=== PATIENT | female | born 1985 | race African-American/Black ===

== ENCOUNTER 2024-09-09 21:45 | Emergency (ER) | payer MEDICARE, MEDICAID, SELFPAY ==
[2024-09-09 21:53] VITALS: BP 157/102; PULSE 74; RESP 20; TEMP 36.7; O2SAT 97; BMI 53.2
--- NOTE | 2024-09-09 22:12 | HMH.EDGENADL ---
Discharge Plan Disposition Patient Disposition: Home, Self-Care Condition: Good Prescriptions Prescriptions: New oxymetazoline [Afrin (oxymetazoline)] 0.05 % spray,non-aerosol 2 spray intranasal BID PRN (Reason: nasal congestion) 3 Days Qty: 15 0RF fluticasone propionate [Flonase Allergy Relief] 50 mcg/actuation spray,suspension 1 spray intranasal BID Qty: 16 0RF Rx Instructions: administer into each nostril cetirizine [Zyrtec] 10 mg tablet 10 mg PO DAILY Qty: 30 0RF amoxicillin-pot clavulanate 875-125 mg tablet 1 tab PO BID Qty: 20 0RF fddqjkkuvkkqhre-kyzkcpqsh-YW [Bromfed DM] 2-30-10 mg/5 mL syrup 5 ml PO Q6H PRN (Reason: cold symptoms) Qty: 118 0RF Referrals Follow up/Referrals: Zora Negrete APRN [Nurse Practitioner] - See instructions Provider,ReferralMD [Primary Care Provider] - See instructions Activity Restrictions/Add. Instructions Additional Instructions/Restrictions: You were evaluated in the emergency department today. 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 Follow-up closely with your primary care provider. I also recommend close follow-up with ENT. Return to the emergency department for new or worsening symptoms. Clinical Impressions Clinical Impression: Sinusitis, Epistaxis Stand Alone Forms Stand Alone Forms: Work/School Release Instructions Patient Instructions: DI for Sinusitis, DI for Nosebleed Print Language Print Language: Sinhala Discharge ED Provider: Annalise Garcia General Adult HPI General Chief complaint: Upper Respiratory Infection Stated complaint: flako,nosebleeds Time Seen by Provider: 09/09/24 21:53 Mode of Arrival: Ambulatory Source of Information: Patient Limitations: No Limitations Description of Symptoms (Recalled from ER Triage Doc. by RN): Pt reports to ED with cc of cough, congestion, bloody nose, and migraine/headache. Pt states symptoms started approx 5 days ago. Pt describe the bloody nose as lasting 30 to 40 mins and having clots. Pt states taking Tylenol at approx 1900 with no relief. History of Present Illness HPI narrative: This patient is a 38-year-old female who has history of obesity presenting to the emergency department for evaluation with concern for nasal congestion and nosebleeds over the last 5 days. She also notes that she has had cough and sore throat. She notes that she is having nosebleeds several times a day and typically lasts about 30 minutes. Last bleed was about 2 hours prior to arrival. She knows she was post to have sinus surgery in the past but did not because she was scared to. She denies any severe headache, visual disturbance, or other concerns. No chest pain or shortness of breath. Related Data Previous Rx's ?Medication ?Instructions ?Recorded amoxicillin 875 mg-potassium 1 tab PO BID #20 tabs 09/09/24 clavulanate 125 mg tablet ptibleqnffiaxxz-kpnzgwuctwlsrbn-LU 5 ml PO Q6H PRN cold symptoms #118 09/09/24 2 mg-30 mg-10 mg/5 mL oral syrup mL (Bromfed DM) cetirizine 10 mg tablet (Zyrtec) 10 mg PO DAILY #30 tabs 09/09/24 fluticasone propionate 50 1 spray intranasal BID #16 grams 09/09/24 mcg/actuation nasal spray,suspension (Flonase Allergy Relief) oxymetazoline 0.05 % nasal spray 2 spray intranasal BID PRN nasal 09/09/24 (Afrin (oxymetazoline)) congestion 3 days #15 mL Allergies Allergy/AdvReac Type Severity Reaction Status Date / Time pantoprazole (From Protonix) Allergy Hives Verified 09/09/24 22:11 [facility] Disclaimer: The information contained in this section may have been updated after the patient was seen, as this information can be updated by other users. Social History Smoking Status: Never smoker alcohol intake: never current occupational status: employed ROS Obtained: Yes All systems reviewed & no additional complaints except as documented Physical Exam General General appearance: alert, in no apparent distress and obese Head Head exam: atraumatic and normocephalic Eye Eye exam: Present normal appearance, PERRL and EOMI ENT ENT exam: Present normal oropharynx, mucous membranes moist, normal external ear exam and other (Nasal congestion with no active epistaxis. No septal hematoma or perforation noted on exam.) Neck Neck exam: Present normal inspection, full ROM and trachea midline; Absent tenderness Chest Chest inspection: Present normal inspection and symmetric chest wall rise; Absent tenderness Respiratory Respiratory exam: Present normal lung sounds bilaterally; Absent respiratory distress, wheezes, stridor or accessory muscle use Cardiovascular Cardiovascular exam: Present regular rate and normal rhythm Abdominal Exam Abdominal exam: Present soft; Absent distention, tenderness or guarding Extremities Exam Extremities exam: Present normal inspection, full ROM and normal capillary refill; Absent tenderness or edema Back Exam Back exam: Present normal inspection and full ROM; Absent tenderness Neurological Exam Neurological exam: Present alert, oriented X3, CN II-XII intact and normal gait; Absent motor sensory deficit Psychiatric Psychiatric exam: Present normal affect and normal mood Skin Skin exam: Present warm and dry Medical Decision Making Medical Records Medical records reviewed: Yes I reviewed the patient's medical records. Screening: Per USPSTF and CDC recommendations, given the prevalence of disease in our region, it is our hospital?s policy to screen for HIV and viral Hepatitis for all patients aged 18 and over and those with ongoing risk factors. Zheng Inquiry Pt receiving controlled substance: No Vital Signs: 09/09/24 21:53 09/09/24 22:22 Temperature 98.1 F 98.1 F Temperature Source Oral Pulse Rate 80 Pulse Rate [Left Radial] 74 Respiratory Rate 20 20 Blood Pressure 154/83 H Blood Pressure [Right Arm] 157/102 H Blood Pressure Mean [Right Arm] 120 Blood Pressure Source Automatic Cuff Blood Pressure Source [Right Arm] Automatic Cuff Blood Pressure Position Sitting Blood Pressure Position [Right Arm] Sitting 02 Sat by Pulse Oximetry 97 Oxygen Delivery Method Room Air Room Air Lab Data Lab results reviewed: Yes I reviewed the patient's lab results. Medical Decision Narrative: In summary, this patient is a 38-year-old female presenting to the Emergency Department for evaluation of nosebleeds, nasal congestion, sore throat, cough. Differential diagnoses considered include but are not limited to viral syndrome, pneumonia, sinusitis, pharyngitis. Ruling out the most morbid conditions drove assessment. On exam, the patient is very well-appearing. She currently has no epistaxis. She does have significant nasal congestion but no septal hematoma, perforation, or other concerns noted on exam. She is nontoxic-appearing with reassuring cardiopulmonary exam. Oropharyngeal exam is also reassuring. Ultimately, I feel she likely has sinusitis causing her symptoms and notes she does have chronic sinus pain. Will plan to treat with Augmentin as well as Flonase and Zyrtec. She was also given Bromfed at her request and I did prescribe Afrin to use as needed for nosebleeds, but I did advise caution with prolonged use. Ultimately, feel she would benefit from discharge with close follow-up with ENT and primary care. Patient was given instructions for this as well as strict return precautions. She was discharged after all questions were answered. Critical Care Critical Care Time Critical Care Time: No
[2024-09-09 22:22] VITALS: BP 154/83; PULSE 80; RESP 20; TEMP 36.7; O2SAT 97
== END 2024-09-09 22:25 | disposition home or self-care (01) ==
PROVIDERS: Emergency Provider Emergency Medicine
DX: J32.9 Chronic sinusitis, unspecified (principal); R04.0 Epistaxis; R05.9 Cough, unspecified; R09.81 Nasal congestion; R51.9 Headache, unspecified; J02.9 Acute pharyngitis, unspecified
CPT/HCPCS: 99283

== ENCOUNTER 2024-11-16 21:17 | Emergency (ER) | payer MEDICARE, MEDICAID, SELFPAY ==
[2024-11-16 21:19] VITALS: BP 172/97; PULSE 83; RESP 16; TEMP 36.8; O2SAT 98; BMI 53.2
--- NOTE | 2024-11-16 21:26 | XR_ITS ---
PROCEDURE INFORMATION: Exam: XR Right Hand Exam date and time: 11/16/2024 11:00 PM Age: 38 years old Clinical indication: Injury or trauma; Other: Smashed TECHNIQUE: Imaging protocol: Radiologic exam of the right hand. Views: 3 or more views. COMPARISON: No relevant prior studies available. FINDINGS: Bones/joints: Multiple views were obtained. The osseous structures appear intact with no evidence of acute fracture, dislocation, or malalignment. Joint spaces are preserved. No abnormal bone density or destructive lesions are noted. Soft tissues: Soft tissue swelling is observed, and further clinical correlation is advised. IMPRESSION: At the time of imaging, the skeletal radiograph demonstrates no acute osseous abnormalities but does show soft tissue swelling.
[2024-11-16] MEDS: IBUPROFEN 800 MG TABLET PO (21:33)
--- NOTE | 2024-11-16 21:33 | PC.NURSE ---
Patient provided an ice pack at this time. Medicated as documented.
--- NOTE | 2024-11-16 22:17 | ED_ITS ---
Discharge Plan Disposition Patient Disposition: Home, Self-Care Condition: Good Prescriptions Prescriptions: No Action oxymetazoline [Afrin (oxymetazoline)] 0.05 % spray,non-aerosol 2 spray intranasal BID PRN (Reason: nasal congestion) 3 Days Qty: 15 0RF fluticasone propionate [Flonase Allergy Relief] 50 mcg/actuation spray,suspension 1 spray intranasal BID Qty: 16 0RF Rx Instructions: administer into each nostril cetirizine [Zyrtec] 10 mg tablet 10 mg PO DAILY Qty: 30 0RF amoxicillin-pot clavulanate 875-125 mg tablet 1 tab PO BID Qty: 20 0RF phbutokyvqmxxbv-szozsvvcb-DX [Bromfed DM] 2-30-10 mg/5 mL syrup 5 ml PO Q6H PRN (Reason: cold symptoms) Qty: 118 0RF Referrals Follow up/Referrals: Torrie Washburn APRN [Primary Care Provider] - See instructions Activity Restrictions/Add. Instructions Additional Instructions/Restrictions: You were evaluated in the emergency department today. At this time, your x-ray does not demonstrate any acute broken bone. Please take Tylenol and ibuprofen for any pain.. Return to the emergency department for new or worsening symptoms. Clinical Impressions Clinical Impression: Crush injury of hand Stand Alone Forms Stand Alone Forms: Work/School Release Instructions Patient Instructions: DI for Hand Injury, DI for Hand Pain Print Language Print Language: Lao Discharge ED Provider: Annalise Garcia General Adult HPI General Chief complaint: Extremity Injury, Upper Stated complaint: [id number] Middle finger inj Time Seen by Provider: 11/16/24 21:31 Mode of Arrival: Ambulatory Source of Information: Patient Limitations: No Limitations Description of Symptoms (Recalled from ER Triage Doc. by RN): Patient presents ambulatory to triage. States she was assisting a family member move when she smashed her middle finger on her right hand in the door of the [facility]. Patient states the injury was sustained 2 hours ago. States she took Tylenol 500mg with no results. Patients skin tone consistent with ethnicity. Capillary refill <2 minutes. Patient states she cannot move the finger. History of Present Illness HPI narrative: This patient is a 38-year-old female presents to the emergency department for evaluation with concern for right middle finger injury. Patient was helping move with a [employer] when she smashed her finger in the door of the [employer]. This happened 2 hours prior to arrival. She took Tylenol without good improvement. She complains of significant pain to the right middle finger with limited range of motion secondary to pain. No numbness, tingling, or other concerns noted. Related Data Previous Rx's ?Medication ?Instructions ?Recorded amoxicillin 875 mg-potassium 1 tab PO BID #20 tabs 09/09/24 clavulanate 125 mg tablet aubltohrebgrqfb-boyiykgyurquool-DN 5 ml PO Q6H PRN cold symptoms #118 09/09/24 2 mg-30 mg-10 mg/5 mL oral syrup mL (Bromfed DM) cetirizine 10 mg tablet (Zyrtec) 10 mg PO DAILY #30 tabs 09/09/24 fluticasone propionate 50 1 spray intranasal BID #16 grams 09/09/24 mcg/actuation nasal spray,suspension (Flonase Allergy Relief) oxymetazoline 0.05 % nasal spray 2 spray intranasal BID PRN nasal 09/09/24 (Afrin (oxymetazoline)) congestion 3 days #15 mL Allergies Allergy/AdvReac Type Severity Reaction Status Date / Time pantoprazole (From Protonix) Allergy Hives Verified 09/09/24 22:11 [facility] Disclaimer: The information contained in this section may have been updated after the patient was seen, as this information can be updated by other users. Social History Smoking Status: Never smoker alcohol intake: never current occupational status: employed Travel in the last 8 weeks: None ROS Obtained: Yes All systems reviewed & no additional complaints except as documented Physical Exam General General appearance: alert and in no apparent distress Head Head exam: atraumatic and normocephalic Eye Eye exam: Present normal appearance, PERRL and EOMI ENT ENT exam: Present normal exam, normal oropharynx, mucous membranes moist and normal external ear exam Neck Neck exam: Present normal inspection, full ROM and trachea midline; Absent tenderness Chest Chest inspection: Present normal inspection and symmetric chest wall rise; Absent tenderness Respiratory Respiratory exam: Present normal lung sounds bilaterally; Absent respiratory distress, wheezes, stridor or accessory muscle use Cardiovascular Cardiovascular exam: Present regular rate and normal rhythm Abdominal Exam Abdominal exam: Present soft; Absent distention, tenderness or guarding Extremities Exam Extremities exam: Present tenderness, normal capillary refill and other (Tender to palpation of the right middle finger. All compartments soft. Neurovascularly intact distally. Limited range of motion secondary to pain. No open wounds); Absent edema Back Exam Back exam: Present normal inspection and full ROM; Absent tenderness Neurological Exam Neurological exam: Present alert, oriented X3, CN II-XII intact and normal gait; Absent motor sensory deficit Psychiatric Psychiatric exam: Present normal affect and normal mood Skin Skin exam: Present warm and dry Medical Decision Making Medical Records Medical records reviewed: Yes I reviewed the patient's medical records. Screening: Per USPSTF and CDC recommendations, given the prevalence of disease in our region, it is our hospital?s policy to screen for HIV and viral Hepatitis for all patients aged 18 and over and those with ongoing risk factors. Zheng Inquiry Pt receiving controlled substance: No Vital Signs: 11/16/24 21:19 11/16/24 23:31 Temperature 98.3 F 98.2 F Temperature Source Oral Oral Pulse Rate 88 Pulse Rate [Radial] 83 Respiratory Rate 16 20 Blood Pressure 170/90 H Blood Pressure [Left Arm] 172/97 H Blood Pressure Mean [Left Arm] 122 Blood Pressure Source Automatic Cuff Blood Pressure Source [Left Arm] Automatic Cuff Blood Pressure Position Sitting 02 Sat by Pulse Oximetry 98 Oxygen Delivery Method Room Air Room Air Lab Data Lab results reviewed: Yes I reviewed the patient's lab results. Orders (Tests/Meds): ED MEDICATIONS Discontinued Medications Generic Name Dose Route Start Last Admin Trade Name Freq PRN Reason Stop Dose Admin Ibuprofen 800 mg 11/16/24 21:27 11/16/24 21:33 Ibuprofen 800 Mg Tablet PO 11/16/24 21:28 800 mg ONCE ONE Administration ORDERS Category Date Time Status XR hand RT min 3V Stat Exams 11/16/24 21:26 Completed Medical Decision Narrative: In summary, this patient is a 38-year-old female presenting to the Emergency Department for evaluation of a finger injury after smashing a [employer] door. Differential diagnoses considered include but are not limited to fracture, contusion, crush injury, neurovascular injury. Ruling out the most morbid conditions drove assessment. On exam, the patient has right middle finger tenderness and swelling with limited range of motion secondary to pain. She is neurovascularly intact with no open wounds. Workup included x-ray of right hand. She is given oral ibuprofen for symptomatic improvement. I independently interpreted x-ray prior to the radiologist read and noted no fracture. Please see their read for final interpretation. At this time, I feel patient is appropriate for discharge home with instructions for supportive management of contusion to hand. Strict return precautions given Critical Care Critical Care Time Critical Care Time: No
[2024-11-16 23:31] VITALS: BP 170/90; PULSE 88; RESP 20; TEMP 36.8; O2SAT 98
== END 2024-11-16 23:35 | disposition home or self-care (01) ==
PROVIDERS: Emergency Provider Emergency Medicine; PCP Nurse Practitioner Family
DX: S67.21XA Crushing injury of right hand, initial encounter (principal); M79.644 Pain in right finger(s); X58.XXXA Exposure to other specified factors, initial encounter; Y93.89 Activity, other specified; Y92.9 Unspecified place or not applicable
CPT/HCPCS: 73130; 99283

== ENCOUNTER 2025-01-14 02:15 | Emergency (ER) | payer MEDICARE, SELFPAY ==
[2025-01-14 02:21] VITALS: BP 195/113; PULSE 79; RESP 20; TEMP 36.6; O2SAT 98; BMI 47.0
--- NOTE | 2025-01-14 02:33 | XR_ITS ---
PROCEDURE INFORMATION: Exam: XR Chest Exam date and time: 01/14/2025 2:43 AM Age: 39 years old Clinical indication: Shortness of breath; Additional info: SOA TECHNIQUE: Imaging protocol: Radiologic exam of the chest. Views: 2 views. COMPARISON: No relevant prior studies available. FINDINGS: Lungs: Probable atelectatic changes. Pleural spaces: No pneumothorax. Heart/Mediastinum: Unremarkable cardiomediastinal silhouette. Bones/joints: No acute osseous findings. IMPRESSION: No focal consolidation.
--- NOTE | 2025-01-14 02:34 | ED_ITS ---
Discharge Plan Disposition Patient Disposition: Home, Self-Care Condition: Good Prescriptions Prescriptions: New epinephrine 0.3 mg/0.3 mL auto-injector 0.3 mg IM Q10M PRN (Reason: anaphylaxis) Qty: 2 0RF Rx Instructions: do not exceed 3 doses per episode No Action oxymetazoline [Afrin (oxymetazoline)] 0.05 % spray,non-aerosol 2 spray intranasal BID PRN (Reason: nasal congestion) 3 Days Qty: 15 0RF fluticasone propionate [Flonase Allergy Relief] 50 mcg/actuation spray,suspension 1 spray intranasal BID Qty: 16 0RF Rx Instructions: administer into each nostril cetirizine [Zyrtec] 10 mg tablet 10 mg PO DAILY Qty: 30 0RF amoxicillin-pot clavulanate 875-125 mg tablet 1 tab PO BID Qty: 20 0RF lnicdilidfoaccv-aarcrpdnl-GI [Bromfed DM] 2-30-10 mg/5 mL syrup 5 ml PO Q6H PRN (Reason: cold symptoms) Qty: 118 0RF Referrals Follow up/Referrals: Torrie Washburn APRN [Primary Care Provider] - See instructions Activity Restrictions/Add. Instructions Additional Instructions/Restrictions: You were evaluated in the ER and are believed to be appropriate for discharge at this time. STOP taking the Symbicort. Continue taking your other home medications as prescribed. See if by stopping the Symbicort your symptoms improve/go away. territory supervisor the prescribed EpiPen and use it if needed for severe or life- threatening allergic reaction including anaphylaxis or lip or tongue swelling. If you use the EpiPen, immediately go to the closest ER. Call your primary care doctor first thing this morning for immediate follow-up and to discuss the side effects you are experiencing from the Symbicort. Also call your log rider for close follow-up. Return to the ER with any new, worsening, or otherwise concerning symptoms. Clinical Impressions Clinical Impression: Medication side effect, Shortness of breath Print Language Print Language: Kinyarwanda Discharge ED Provider: Ruby Howard Adult HPI General Chief complaint: Upper Respiratory Infection Stated complaint: SOA Time Seen by Provider: 01/14/25 02:22 Mode of Arrival: Ambulatory Source of Information: Patient Description of Symptoms (Recalled from ER Triage Doc. by RN): Pt states she has had sore throat and difficulty breathing History of Present Illness HPI narrative: 39-year-old female with history of asthma presents to the ER with complaints of sore throat, shortness of breath. Patient and family at bedside report that the patient had pulmonary function testing recently that showed her asthma was worsening, her PCP started her on Symbicort a few days ago. Patient has only taken 3 doses of this but has noticed in that time she has gotten a sore throat and her shortness of breath seems worsening. She also reports that her tongue feels funny and uncomfortable, she does not describe any tongue swelling or thickening, throat swelling, difficulty swallowing, lip swelling, vomiting. She states she has been washing her mouth after each time she takes her Symbicort. She also states she is taking her albuterol but it does not seem to be helping. She reports a persistent feeling of shortness of breath that is somewhat worse with exertion. Patient reports she has not taken any medications to try to treat her symptoms. Reportedly she has been exposed to multiple people with different illnesses including upper respiratory illness. She reports she is not having any congestion or cough. No fevers. She denies chest pain. No hives or rash. Patient is not sure if she is having a reaction to the Symbicort or if she is getting sick or if her asthma is flared up. No fevers. The last time she took her albuterol was 3 hours prior to arrival. Family at bedside states the patient's voice sounds hoarse now as well. Related Data Previous Rx's ?Medication ?Instructions ?Recorded amoxicillin 875 mg-potassium 1 tab PO BID #20 tabs 09/09/24 clavulanate 125 mg tablet hlfaxarxtrjcacg-rscqoxpbpbapyxf-XA 5 ml PO Q6H PRN cold symptoms #118 09/09/24 2 mg-30 mg-10 mg/5 mL oral syrup mL (Bromfed DM) cetirizine 10 mg tablet (Zyrtec) 10 mg PO DAILY #30 tabs 09/09/24 fluticasone propionate 50 1 spray intranasal BID #16 grams 09/09/24 mcg/actuation nasal spray,suspension (Flonase Allergy Relief) oxymetazoline 0.05 % nasal spray 2 spray intranasal BID PRN nasal 09/09/24 (Afrin (oxymetazoline)) congestion 3 days #15 mL epinephrine 0.3 mg/0.3 mL 0.3 mg (0.3 mL) IM Q10M PRN 01/14/25 injection, auto-injector anaphylaxis #2 ea Allergies Allergy/AdvReac Type Severity Reaction Status Date / Time pantoprazole (From Protonix) Allergy Hives Verified 09/09/24 22:11 [facility] Disclaimer: The information contained in this section may have been updated after the patient was seen, as this information can be updated by other users. Social History (Updated 11/16/24 @ 23:54 by Annalise Garcia DO) Smoking Status: Never smoker alcohol intake: never current occupational status: employed Travel in the last 8 weeks: None Have you lived/traveled outside [place] in past 30 days?: No Contact w/someone who lives/traveled outside [place] past 30 days?: No Exposure to someone with infectious disease in past 14 days?: No Do you have a fever (greater than 100.4 F or 38 C)?: No Have you tested positive for COVID-19: No Exposed to someone with COVID-19 in past 14 days?: No Do you have a sore throat?: No Do you have a cough?: No Do you have any weakness?: No Do you have any diarrhea?: No Are you experiencing any unusual bleeding?: No Do you have any muscle aches/pain?: No Do you have any abdominal pain?: No Are you experiencing loss of taste or smell?: No ROS Obtained: Yes Systems reviewed as appropriate & no additional complaints except as documented Per HPI Physical Exam General General appearance: alert, in no apparent distress and obese Head Head exam: atraumatic and normocephalic Eye Eye exam: Present PERRL and EOMI ENT ENT exam: Present mucous membranes moist and other (Tongue normal-appearing, no swelling, not thickened, no white plaques or evidence of thrush on the mucosal membranes, no evidence of angioedema); Absent normal oropharynx (Posterior oropharynx mildly erythematous but no swelling of the tonsils or exudate, uvula normal-appearing and midline) Neck Neck exam: Present normal inspection and full ROM; Absent lymphadenopathy Chest Chest inspection: Present symmetric chest wall rise; Absent tenderness Respiratory Respiratory exam: Present normal lung sounds bilaterally (Moving air well throughout all lung rausch) and other (Saturating 98% on room air); Absent respiratory distress, wheezes or stridor Cardiovascular Cardiovascular exam: Present regular rate and normal rhythm Abdominal Exam Abdominal exam: Present soft; Absent distention or tenderness Extremities Exam Extremities exam: Present full ROM; Absent edema Neurological Exam Neurological exam: Present alert and oriented X3; Absent motor sensory deficit Psychiatric Psychiatric exam: Present normal affect and normal mood Skin Skin exam: Present warm, dry and other (No rash or hives) Medical Decision Making Medical Records Medical records reviewed: Yes I reviewed the patient's medical records. Screening: Per USPSTF and CDC recommendations, given the prevalence of disease in our region, it is our hospital?s policy to screen for HIV and viral Hepatitis for all patients aged 18 and over and those with ongoing risk factors. MR Comment: Patient has limited recent encounters within our system. She was seen for hand injury in November and discharged in stable condition. X-ray of the hand at that time demonstrating no osseous injury. Zheng Inquiry Pt receiving controlled substance: No Vital Signs: 01/14/25 02:21 Temperature 97.8 F Temperature Source Temporal Artery Scan Pulse Rate [Right Radial] 79 Respiratory Rate 20 Blood Pressure [Right Arm] 195/113 H Blood Pressure Mean [Right Arm] 140 Blood Pressure Source [Right Arm] Automatic Cuff Blood Pressure Position [Right Arm] Sitting 02 Sat by Pulse Oximetry 98 Oxygen Delivery Method Room Air Lab Data Lab Results 01/14/25 02:32: VBG pH 7.35, VBG pCO2 52.6 H, VBG pO2 30.4, VBG HCO3 28.6, VBG Total CO2 30.3 H, VBG O2 Saturation 53.4, VBG Base Excess 3.1 H, VBG Lactic Acid 1.8 01/14/25 02:39: WBC 7.9, RBC 4.89, Hgb 14.4, Hct 44.4, MCV 90.8, MCH 29.4, MCHC 32.4, RDW 12.5, Plt Count 195, MPV 10.0, Neut % (Auto) 62.0, Lymph % (Auto) 29.9, Gove % (Auto) 5.2, Eos % (Auto) 1.5, Baso % (Auto) 0.5, Neut # (Auto) 4.9, Lymph # (Auto) 2.4, Gove # (Auto) 0.4, Eos # (Auto) 0.1, Baso # (Auto) 0.0, PT 10.4, INR 0.92, D-Dimer 0.46, Sodium 140, Potassium 3.9, Chloride 100, Carbon Dioxide 35 H, Anion Gap 8.9, BUN 11, Creatinine 0.70, Estimated Creat Clear 104, Estimated GFR 93, Est GFR ( Amer) 112, Glucose 138 H, Calcium 9.1, Total Bilirubin 0.6, AST 41 H, ALT 35, Alkaline Phosphatase 125, Troponin I < 0.01, NT-Pro-B Natriuret Pep < 20.0, Total Protein 7.5, Albumin 4.1, Globulin 3.4 H, Albumin/Globulin Ratio 1.2, Serum HCG, Qual Negative, HCV Ab MICAH w/Rflx PCR Qn Negative, HIV Ag/Ab Combo Qual Negative 01/14/25 02:43: SARS-CoV-2 (PCR) Not detected, Influenza A Untype (PCR) Not detected, Influenza Type B (PCR) Not detected, Group A Strep Rapid Negative 01/14/25 02:39 01/14/25 02:39 Orders (Tests/Meds): ED MEDICATIONS Discontinued Medications Generic Name Dose Route Start Last Admin Trade Name Freq PRN Reason Stop Dose Admin Aspirin 324 mg 01/14/25 02:33 01/14/25 02:44 Aspirin 81mg Chewable Tablet PO 01/14/25 02:34 324 mg ONCE ONE Administration Diphenhydramine HCl 50 mg 01/14/25 02:32 01/14/25 02:44 Diphenhydramine 50mg/Ml Vial IV 01/14/25 02:33 50 mg ONCE ONE Administration ORDERS Category Date Time Status CXR 2 view (NOT portable) [XR chest 2V] Stat Exams 01/14/25 02:33 Completed BNP [NT Pro Brain Natriuretic Pep.] Stat Lab 01/14/25 02:39 Completed CBC w/Auto Diff [Complete Blood Count Auto Diff] Stat Lab 01/14/25 02:39 Completed CMP [Comprehensive Metabolic Panel] Stat Lab 01/14/25 02:39 Completed D-Dimer Stat Lab 01/14/25 02:39 Completed HCG Qualitative, Serum Stat Lab 01/14/25 02:39 Completed HIV Combo Routine Lab 01/14/25 02:39 Completed Hepatitis C Ab Qual. W/ RFX Routine Lab 01/14/25 02:39 Received PT INR [Prothrombin Time INR] Stat Lab 01/14/25 02:39 Completed Rapid PCR Covid and Flu A/B Stat Lab 01/14/25 02:43 Completed Strep Scrn Group A (Rapid) Stat Lab 01/14/25 02:43 Completed Trop I [Troponin I] Stat Lab 01/14/25 02:39 Completed Troponin I Q3H Lab 01/14/25 05:45 Ordered Troponin I Q3H Lab 01/14/25 08:45 Ordered Strep Screen Confirmation Stat Micro 01/14/25 02:43 Received VBG [Venous Blood Gas] Stat RT 01/14/25 02:32 Completed Medical Decision Narrative: In summary, this 39-year-old female with comorbidities described in the HPI which may not be able presents to the emergency department today with sore throat, shortness of breath. On initial evaluation patient is hemodynamically stable, afebrile, lungs clear bilaterally with good air movement throughout, saturating well on room air, no adventitious sounds, mild posterior oropharyngeal erythema but no swelling, exudate, I had considered thrush but appreciate no evidence of this, no lymphadenopathy, no mucosal swelling, benign abdomen, no hives or rash. Differential diagnosis includes but is not limited to viral syndrome, asthma exacerbation, ACS, PE, strep, medication side effect, I had considered allergic reaction to medication but have lower suspicion for this since patient has no hives, angioedema, wheezing, or evidence of anaphylaxis. Based on these concerns, I ordered serum labs, chest x-ray, cardiac workup, VBG, D-dimer, viral swab, strep test. ECG personally interpreted demonstrates sinus rhythm, rate 83, normal axis, normal MI and QTc, no STEMI. I have low suspicion for allergic reaction and there is no evidence of severe or life-threatening allergic reaction, but patient was provided Benadryl to see if this alleviates any of her symptoms in case this is an allergic reaction to her newly prescribed Symbicort. She also received aspirin in case she is having a cardiac event though I have lower suspicion for this since her symptoms have been gradually progressive over a few days. Labs personally reviewed demonstrate normal CBC, PT/INR normal, VBG with normal pH, she does have trace hypercarbia with PCO2 52.6, she appears to be well compensated for this. Lactic on VBG 1.8. Since patient is moving air well and has no wheezing, saturating well on room air with no tachypnea or accessory muscle use, I am not going to treat her with nebulizer treatments at this time since her VBG appears to indicate that she is at her baseline. CMP nonactionable, hCG negative, strep negative, troponin undetectably low less than 0.01, BNP undetectable. D-dimer normal at 0.46, PE excluded and CTA PE not indicated. Chest x-ray personally interpreted does not demonstrate acute intrathoracic abnormality, see radiology read for final interpretation. On reassessment patient feels similar to prior. She states her tongue may be feels slightly better after getting Benadryl, it appears the same as it did on initial exam. Patient has not had any other change in her symptoms. This offer some reassurance against her symptoms being an allergic reaction. I reviewed the potential side effects of Symbicort and throat pain, oral complaints, and respiratory complaints are not uncommon. I have higher suspicion for patient's symptoms being related to medication side effects so I instructed the patient to stop her Symbicort. In talking with the patient and family at bedside, they indicate the patient is supposed to have an EpiPen due to multiple food allergies, but her EpiPen is currently . I prescribed EpiPen for the patient to have in case she has a life-threatening reaction. We did discuss that while I have low suspicion for her symptoms tonight being an allergy that she should monitor her symptoms even after stopping the Symbicort because if it is an allergy she could have continued reaction. She and family were given explicit instructions to use the EpiPen if she develops angioedema or symptoms of anaphylaxis which I discussed with them. I also instructed them to follow-up closely with her pulmonology team. Patient continues to be stable and resting comfortably and is appropriate for discharge at this time. Patient was given instructions on symptomatic monitoring and management, follow up instructions, and return precautions for the emergency department. Patient indicated understanding and was discharged in stable condition. Critical Care Critical Care Time Critical Care Time: No
[2025-01-14] MEDS: diphenhydrAMINE 50MG/ML VIAL 50 MG IV (02:44)
[2025-01-14] MEDS: ASPIRIN 81MG CHEWABLE TABLET 324 MG PO (02:44)
[2025-01-14 02:47] LABS: Basophils % 0.5 % (0.1-2.0); Eosinophils # 0.1 K/mm3 (0.0-0.4); Eosinophils % 1.5 % (0.1-12.0); Hematocrit 44.4 % (37.0-47.0); Hemoglobin 14.4 g/dL (12.2-16.2); Lymphocytes # 2.4 K/mm3 (0.7-4.5); Lymphocytes % 29.9 % (10-50); Mean Corpuscular HGB Conc 32.4 g/dL (31.8-35.4); Mean Corpuscular Hemoglobin 29.4 pg (27.0-31.2); Mean Corpuscular Volume 90.8 fl (81-99); Monocytes # 0.4 K/mm3 (0.1-1.0); Monocytes % 5.2 % (1.7-9.3); Neutrophils # 4.9 K/mm3 (1.8-7.8); Platelet Count 195 K/mm3 (142-424); Red Blood Count 4.89 M/mm3 (4.20-5.40); Red Cell Distribution Width 12.5 % (11.5-17.5); White Blood Count 7.9 K/mm3 (4.8-10.8)
[2025-01-14 02:49] LABS: Coronavirus 19, PCR Not Detected (NotDetected); Influenza A, PCR Not Detected (NotDetected); Influenza B, PCR Not Detected (NotDetected)
--- NOTE | 2025-01-14 02:49 | ECG_ITS ---
APPROVED REPORT Exam: Resting ECG HR:83 bpm ECG Measurements Heart Rate 83 AXES CA 171 P 57 QRSd 98 QRS 60 QT 367 T 37 QTc 407 Conclusion SINUS RHYTHM NONSPECIFIC T-WAVE ABNORMALITY No STEMI Electronically signed by : JAIRON HAMMONDS, 01/14/2025 03:56:25
[2025-01-14 02:53] LABS: Lactate Venous 1.8 mmol/L (0.4-2.0); VBG Base Excess 3.1 mmol/L (-2.4-2.3); VBG HCO3 28.6 mmol/L (23-30); VBG Oxygen Saturation 53.4 % (50-70); VBG PH 7.35 mmol/L (7.31-7.41); VBG PO2 30.4 mmol/L (28-40); VBG Total CO2 30.3 mmol/L (23-27)
[2025-01-14 02:56] LABS: Strep Scrn Group A (Rapid) Negative (Negative)
[2025-01-14 02:56] LABS: VBG PCO2 52.6 mmol/L (35-51)
[2025-01-14 03:02] LABS: Alanine Aminotransferase 35 U/L (12-78); Albumin Level 4.1 g/dl (3.5-5.0); Albumin/Globulin Ratio 1.2 (1.1-1.8); Alkaline Phosphatase 125 U/L (38-126); Anion Gap 8.9 mEq/L (5-15); Aspartate Amino Transferase 41 U/L (14-36); Bilirubin,Total 0.6 mg/dl (0.2-1.3); Blood Urea Nitrogen 11 mg/dl (7-17); Calcium 9.1 mg/dl (8.4-10.2); Carbon Dioxide 35 mmol/L (22.0-30.0); Chloride 100 mmol/L (98-107); Creatinine Clearance Estimated 104 mL/min (50-200); Estimated Glomerular Filt Rate 93 ml/min (>60); GFR (African American) 112 ML/MIN (>60); Globulin 3.4 g/dL (1.3-3.2); Glucose 138 mg/dl (74-100); HCG Qualitative, Serum Negative (Negative); Potassium 3.9 mmoL/L (3.5-5.1); Sodium 140 mmol/L (136-145); Total Protein,Serum 7.5 g/dl (6.3-8.2)
[2025-01-14 03:03] LABS: INR 0.92 (0.9-1.1); Prothrombin Time 10.4 seconds (10.1-12.5)
[2025-01-14 03:11] LABS: D-Dimer 0.46 ug/mL (0.0-0.5)
[2025-01-14 03:12] LABS: NT Pro Brain Natriuretic Pep. < 20.0 pg/mL (0-125)
[2025-01-14 03:14] LABS: Troponin I < 0.01 ng/ml (0.00-0.034)
[2025-01-14 03:45] LABS: HIV Combo NEGATIVE (Negative)
[2025-01-14 03:50] LABS: Hepatitis C Ab Qual. W/ RFX NEGATIVE (Negative)
[2025-01-14 03:53] VITALS: BP 135/78; PULSE 65; RESP 16; TEMP 37; O2SAT 98
--- NOTE | 2025-01-14 03:56 | PC.NURSE ---
IV discontinued. catheter tip intact. bleeding controlled.
== END 2025-01-14 04:00 | disposition home or self-care (01) ==
PROVIDERS: Emergency Provider Emergency Medicine; PCP Nurse Practitioner Family
DX: T88.7XXA Unspecified adverse effect of drug or medicament, initial encounter (principal); Z20.828 Contact with and (suspected) exposure to other viral communicable diseases
CPT/HCPCS: 71046; 80053; 82803; 83880; 84484; 84703; 85025; 85378; 85610; 86803; 87389; 87430; 87636; 93005; 96374; 99284; J1200